=== PATIENT | male | born 2005 | race Asian ===

== ENCOUNTER 2025-07-12 12:07 | Emergency (ER) | payer OTHER ==
[2025-07-12 12:58] LABS: Acetaminophen Less than 10 mcg/mL (Less than 10); Salicylate Less than 8.0 mg/dL (Less than 8.0)
[2025-07-12 12:59] LABS: ALT (SGPT) 19 U/L (Less than 45); AST (SGOT) 25 U/L (11-34); Albumin 5.1 g/dL (3.1-4.5); Alkaline Phosphatase 76 U/L (50-130); Anion Gap 24 mmol/L (10-20); BUN (Urea Nitrogen) 14 mg/dL (8.9-20.6); Bilirubin, Total 0.6 mg/dL (0.3-1.2); Calc. Creatinine Clearance 0 mL/min (70-130); Calcium 9.9 mg/dL (7.8-10.44); Carbon Dioxide 12 mmol/L (22-29); Chloride 106 mmol/L (98-107); Globulin 3.3 g/dL (2.4-3.5); Glucose 137 mg/dL (70-105); Potassium 3.6 mmol/L (3.5-5.1); Sodium 138 mmol/L (136-145)
[2025-07-12 14:08] LABS: Hematocrit 45.7 % (38.8-50.0); Hemoglobin 15.6 g/dL (13.5-17.5); Mean Corpuscular Hemoglobin 29.7 pg (27.0-33.0); Mean Corpuscular Volume 86.9 fL (81.2-95.1); Platelet Count 358 10x3/uL (150-450); Red Blood Cell (RBC) Count 5.26 10x6/uL (4.32-5.72); White Blood Cell (WBC) Count 13.88 10x3/uL (3.5-10.5)
[2025-07-12 14:26] LABS: Glucose, Urine (Dipstick) Normal (Negative); Leukocyte Negative (Negative); Protein, Urine (Dipstick) 15 mg/dl (Neg-Trace); Specific Gravity, Urine 1.025 (1.005-1.030)
[2025-07-12 14:29] LABS: Cocaine Metabolite Screen Negative (Negative); THC/Cannabinoid Screen PRELIM POSITIVE (Negative); Tricyclic Screen Negative (Negative)
[2025-07-12 14:32] LABS: Platelet Adequacy Comment Appears Adequate; RBC Morphology Within Normal Limits
[2025-07-12 14:33] LABS: MDiff Complete? YES
[2025-07-12 14:59] LABS: Bacteria/HPF None Seen HPF (None Seen); CAUTI Indications for Culture Pelvic or flank pain; RBC/HPF None Seen HPF (0-3); Urine Culture Reflex No No; WBC/HPF None Seen HPF (0-3)
== END 2025-07-12 16:00 | disposition home or self-care (01) ==
LOC: CSHERS 12:07 → EDBD 12:07 → CSHERS 16:00
DX: R56.9 Unspecified convulsions (principal)
CPT/HCPCS: 36415; 36416; 70450; 80053; 80306; 80307; 81001; 83605; 84146; 85025; 93005